=== PATIENT | female | born 1975 | race Two or more races ===

== ENCOUNTER → 2024-08-24 | Outpatient (CLI) | payer MEDICAID, SELFPAY ==
--- NOTE | 2024-08-24 09:50 | XR_ITS ---
Examination: Abdomen 2 views TECHNIQUE: AP upright AP supine abdomen 2 views Exam date and time: August 24, 2024 1017 hours INDICATIONS: Abdominal pain and nausea beginning 2 years ago. FINDINGS: Moderate to large amount stool throughout the colon No obstruction No free air Intact osseous structures Thoracolumbar levoscoliosis which may be positional IMPRESSION: Moderate to large amounts of stool throughout
--- NOTE | 2024-08-24 09:51 | XR_ITS ---
Examination: Lumbar spine 3 views Technique one AP lateral coned lateral lower lumbar spine 3 views Exam date and time: August 24, 2024 1023 hours INDICATIONS: Back pain beginning 3 years ago. FINDINGS: Minimal anterolisthesis, 4 mm L4 on L5 No lumbar fracture Mild disc narrowing L4-L5 Intact pedicles No cortical bone obstruction IMPRESSION: Mild disc narrowing L4-L5 No findings diagnostic for osseous metastatic disease
== END | disposition home or self-care (01) ==
LOC: CDIM 09:40
PROVIDERS: PCP Family Medicine; Referring Provider Nurse Practitioner Family; Visit Provider Nurse Practitioner Family
DX: K59.00 Constipation, unspecified (principal); M48.061 Spinal stenosis, lumbar region without neurogenic claudication
CPT/HCPCS: 72100; 74019